=== PATIENT | female | born 1950 | race Caucasian/White ===

== ENCOUNTER 2020-08-15 09:11 | Outpatient (CLI) | payer MEDICARE, OTHER ==
--- NOTE | 2020-08-18 10:09 | Ultrasound Report ---
LIMITED ULTRASOUND OF LEFT BREAST: 08/15/2020 CLINICAL: Patient returns for short term follow-up of a probably benign mass in the left breast. Comparison is made to exams dated: 08/15/2020 mammogram - [facility], 01/09/2020 mamm ogram, 01/09/2020 ultrasound, and 01/03/2020 mammogram - [facility]. Color flow and real-time ultrasound of the left breast 6 o'clock region were performed. Riojas scale images of the real-time examination were reviewed. There is a 0.6 cm x 0.2 cm x 0.4 cm wider than tall oval mass in the left breast at 6 o'clock anterio r depth 2 cm from the nipple. This oval mass is heterogeneously hypoechoic with no posterior acousti c shadowing or enhancement. This abnormality is not significantly changed and correlates with mammog naomy findings. Color flow imaging demonstrates that there is no vascularity present. IMPRESSION: PROBABLY BENIGN The 0.6 cm x 0.2 cm x 0.4 cm wider than tall oval mass in the left breast is consistent with clustere d cysts and is probably benign. A follow-up bilateral mammogram and a left ultrasound in 6 months is recommended to demonstrate stabi lity. Findings and recommendations were conveyed to the patient during today's evaluation. This exam was interpreted at Station ID: [id number]. Electronically Signed By: Rahul Parish M.D. aty/:08/15/2020 10:56:50 Ultrasound BI-RADS: 3 Probably benign BI-RADS CATEGORY: (3) - 3 Mammo and US [id number] 6 month follow-up LATERALITY: (B)
--- NOTE | 2020-08-18 10:09 | Mammography Report ---
UNILATERAL LEFT DIGITAL DIAGNOSTIC MAMMOGRAM 3D/2D: 08/15/2020 CLINICAL: 6 month follow-up of cysts. Comparison is made to exams dated: 01/09/2020 mammogram and 01/03/2020 mammogram - [facility]. The tissue of left breast is predominantly fatty. Redemonstration of previously described 0.5 cm oval mass in the left breast at 6 o'clock anterior dep th. This is not significantly changed. No other significant masses or calcifications are seen in the breast. IMPRESSION: INCOMPLETE: NEEDS ADDITIONAL IMAGING EVALUATION The 0.5 cm oval mass in the left breast is indeterminate. An ultrasound is recommended for further evaluation and is scheduled to immediately follow this exami nation. This exam was interpreted at Station ID: [id number]. NOTE: For mammograms, a report in lay terms will be sent to the patient. Approximately 15% of breast malignancies will not be visualized mammographically. In the management of a palpable breast mass, a negative mammogram must not discourage biopsy of a clinically suspicious lesion. Electronically Signed By: Rahul Parish M.D. aty/:08/15/2020 09:56:44 ACR BI-RADS Category 0: Incomplete 3340F PARENCHYMAL PATTERN: (F) - The breast(s) demonstrate(s) diffuse fatty replacement. BI-RADS CATEGORY: (0) - 0 Ultrasound [id number] Immediate follow-up LATERALITY: (L)
== END 2020-08-15 09:12 | disposition home or self-care (01) ==
LOC: DI 09:11
PROVIDERS: ATTEND Obstetrics & Gynecology
DX: R92.8 Other abnormal and inconclusive findings on diagnostic imaging of breast (principal); N63.25 Unspecified lump in the left breast, overlapping quadrants

== ENCOUNTER 2021-03-24 09:28 | Outpatient (CLI) | payer MEDICARE, OTHER ==
--- NOTE | 2021-03-25 09:54 | Ultrasound Report ---
LIMITED ULTRASOUND OF RIGHT BREAST: 03/24/2021 CLINICAL: Right breast mass. Comparison is made to exams dated: 03/24/2021 mammogram - [facility], 01/09/2020 [facility], 01/09/2020 ultrasound, and 01/03/2020 mammogram - [facility]. Color flow ultrasound of the right breast 10 o'clock region was performed on the areas of interest. Riojas scale images of the real-time examination were reviewed. There is a 0.8 cm x 0.5 cm x 0.7 cm oval mass with an indistinct margin in the right breast at 10 o'c lock anterior depth 1 cm from the nipple. This oval mass is hyperechoic with posterior acoustic shad owing. This correlates with mammography findings. Color flow imaging demonstrates that there is no vascularity present. IMPRESSION: PROBABLY BENIGN The 0.8 cm x 0.5 cm x 0.7 cm oval mass in the right breast is suggestive of focal breast tissue and i s probably benign. Follow-up mammogram and ultrasound in 6 months are recommended. A follow-up mammogram and an ultrasound in 6 months are recommended to demonstrate stability. This exam was interpreted at Station ID: [id number]. Electronically Signed By: José Miguel Rivera M.D. ddp/:03/24/2021 14:45:43 Ultrasound BI-RADS: 3 Probably benign BI-RADS CATEGORY: (3) - 3 Mammo and US [id number] 6 month follow-up LATERALITY: (B)
--- NOTE | 2021-03-25 09:54 | Mammography Report ---
BILATERAL DIGITAL DIAGNOSTIC MAMMOGRAM 3D/2D: 03/24/2021 CLINICAL: Patient returns for a 6 month follow up of the left breast, due for bilateral exam. Comparison is made to exams dated: 08/15/2020 ultrasound, 08/15/2020 mammogram - [facility], 01/09/2020 mammogram, 01/09/2020 ultrasound, and 01/03/2020 mammogram - [facility]. There are scattered fibroglandular elements in both breasts. There is an oval equal density focal asymmetry with an indistinct margin in the right breast at 10 o' clock anterior depth. There is an oval equal density focal asymmetry with an indistinct margin in the left breast at 6 o'cl ock anterior depth. This is not significantly changed. No other significant masses or calcifications are seen in either breast. IMPRESSION: INCOMPLETE: NEEDS ADDITIONAL IMAGING EVALUATION The oval equal density focal asymmetry in the right breast at 10 o'clock anterior depth is indetermin ate. An ultrasound is recommended. The oval equal density focal asymmetry in the left breast at 6 o'clock anterior depth is indeterminat e. An ultrasound is recommended. This exam was interpreted at Station ID: [id number]. NOTE: For mammograms, a report in lay terms will be sent to the patient. Approximately 15% of breast malignancies will not be visualized mammographically. In the management of a palpable breast mass, a negative mammogram must not discourage biopsy of a clinically suspicious lesion. Electronically Signed By: José Miguel Rivera M.D. ddp/:03/24/2021 11:11:01 ACR BI-RADS Category 0: Incomplete 3340F PARENCHYMAL PATTERN: (A) - The breast(s) demonstrate(s) scattered fibroglandular densities. BI-RADS CATEGORY: (0) - 0 Ultrasound [id number] Immediate follow-up LATERALITY: (B)
--- NOTE | 2021-03-25 09:54 | Ultrasound Report ---
LIMITED ULTRASOUND OF LEFT BREAST: 03/24/2021 CLINICAL: Patient returns today to evaluate a focal asymmetry in the left breast. Comparison is made to exams dated: 08/15/2020 ultrasound, 08/15/2020 mammogram - [facility], 01/09/2020 mammogram, 01/09/2020 ultrasound, and 01/03/2020 mammogram - [facility]. Color flow ultrasound of the left breast 6 o'clock region was performed on the areas of interest. G ray scale images of the real-time examination were reviewed. There is a 0.6 cm x 0.3 cm x 0.4 cm cluster of oval cysts with a septated internal wall in the left b reast at 6 o'clock anterior depth 1 cm from the nipple. This cluster of oval cysts is hypoechoic. T his correlates with mammography findings. Color flow imaging demonstrates that there is no vasculari ty present. Findings are not significantly changed from the prior studies. IMPRESSION: PROBABLY BENIGN The 0.6 cm x 0.3 cm x 0.4 cm cluster of oval cysts in the left breast is probably benign. A follow-up mammogram and an ultrasound in 12 months are recommended to demonstrate 2 year stability. This exam was interpreted at Station ID: [id number]. Electronically Signed By: José Miguel Rivera M.D. ddclarisa/:03/24/2021 14:43:42 Ultrasound BI-RADS: 3 Probably benign BI-RADS CATEGORY: (3) - 3 Mammo and US [id number] 12 month follow-up LATERALITY: (B)
== END 2021-03-24 09:29 | disposition home or self-care (01) ==
LOC: DI 09:28
PROVIDERS: ATTEND Internal Medicine
DX: N60.12 Diffuse cystic mastopathy of left breast (principal); N63.11 Unspecified lump in the right breast, upper outer quadrant; R92.8 Other abnormal and inconclusive findings on diagnostic imaging of breast; F41.9 Anxiety disorder, unspecified; I10 Essential (primary) hypertension; E03.9 Hypothyroidism, unspecified; K22.2 Esophageal obstruction; Z22.2 Carrier of diphtheria; Z11.59 Encounter for screening for other viral diseases; Z13.1 Encounter for screening for diabetes mellitus
CPT/HCPCS: 36415; 80048; 80061; 83036; 83721; 86803

== ENCOUNTER 2021-03-24 09:38 | Outpatient (CLI) | payer MEDICARE, OTHER ==
[2021-03-24 10:20] LABS: BUN - BLOOD UREA NITROGEN 10 mg/dL (6-20); CALCIUM 9.5 mg/dL (8.5-10.3); CARBON DIOXIDE - CO2 30 mmol/L (21-32); CHLORIDE 100 mmol/L (101-111); CHOL/HDL RATIO 3.1 (<4.4); CHOLESTEROL 253 mg/dL; CREATININE 0.7 mg/dL (0.4-1.0); GFR - MDRD 83 (>89); GLUCOSE 115 mg/dL (70-100); HDL CHOLESTEROL 81 mg/dL; LDL CHOLESTEROL,CALCULATED 160 mg/dL; POTASSIUM 3.9 mmol/L (3.5-5.0); SODIUM 142 mmol/L (135-145); TRIGLYCERIDES 62 mg/dL; VLDL CHOLESTEROL 12 mg/dL
[2021-03-24 12:08] LABS: ESTIMATED AVERAGE GLUCOSE 111 mg/dL (70-100); HEMOGLOBIN A1c% 5.5 % (4.27-6.07)
[2021-03-26 09:22] LABS: HEPATITIS C ANTIBODY NON-REACTIVE (NON-REACTIVE)
== END 2021-03-24 09:39 | disposition home or self-care (01) ==
LOC: LAB 09:38
PROVIDERS: ATTEND Internal Medicine
DX: R92.8 Other abnormal and inconclusive findings on diagnostic imaging of breast (principal); F41.9 Anxiety disorder, unspecified; I10 Essential (primary) hypertension; E03.9 Hypothyroidism, unspecified; K22.2 Esophageal obstruction; Z11.59 Encounter for screening for other viral diseases; Z13.220 Encounter for screening for lipoid disorders; Z13.1 Encounter for screening for diabetes mellitus
CPT/HCPCS: 36415; 80048; 80061; 83036; 83721; 86803

== ENCOUNTER 2021-04-14 14:04 | Outpatient (CLI) | payer MEDICARE ==
[2021-04-14 14:53] LABS: THYROID STIMULATING HORMONE 2.56 uIU/mL (0.34-5.60)
--- NOTE | 2021-04-14 15:04 | DEXA Report ---
PROCEDURE: Dexa Spine and/or Hip INDICATIONS: NORMAL MENOPAUSE TECHNIQUE: Dual energy x-ray absorptiometry (DXA) was performed on a Simpleshow System. Regions measur ed are the AP Spine, femoral neck, and if needed forearm. COMPARISON: None. FINDINGS: Lumbar Spine: Bone Mineral Density 1.076 g/cm/cm,T score -0.9, normal bone density Left Hip: Bone Mineral Density 0.863 g/cm/cm,T score -1.1, osteopenia Left Femoral Neck: Bone Mineral Density 0.767 g/cm/cm, T score -2.0, osteopenia (T score greater or equal to -1.0: NORMAL) (T score from -1.1 to -2.4: OSTEOPENIA) (T score less than or equal to -2.5 to: OSTEOPOROSIS) Impression: OSTEOPENIA. Patient is at increased risk for fracture. Patients with diagnosis of osteoporosis or osteopenia should have regular bone mineral density assess ment. For those eligible for Medicare, routine testing is allowed once every 2 years. Testing frequ ency can be increased for patients who have rapidly progressing disease or for those who are receivin g medical therapy to restore bone mass. Reviewed by: Rahul Parish MD on 04/14/2021 3:03 PM PST Approved by: Rahul Parish MD on 04/14/2021 3:03 PM PST Station ID: [id number]
== END 2021-04-14 14:05 | disposition home or self-care (01) ==
LOC: DI 14:04
PROVIDERS: ATTEND Internal Medicine
DX: Z78.0 Asymptomatic menopausal state (principal); M85.89 Other specified disorders of bone density and structure, multiple sites; E03.9 Hypothyroidism, unspecified
CPT/HCPCS: 36415; 84443

== ENCOUNTER 2021-06-16 11:51 | Outpatient (CLI) | payer MEDICARE ==
[2021-06-16 12:20] LABS: CALCIUM 9.4 mg/dL (8.5-10.3); CREATININE 0.9 mg/dL (0.4-1.0); POTASSIUM 3.1 mmol/L (3.5-5.0)
== END 2021-06-16 11:52 | disposition home or self-care (01) ==
LOC: LAB 11:51
PROVIDERS: ATTEND Internal Medicine
DX: I10 Essential (primary) hypertension (principal)
CPT/HCPCS: 36415; 80048

== ENCOUNTER 2022-03-22 11:52 | Emergency (ER) | payer MEDICARE ==
--- NOTE | 2022-03-22 18:47 | ED Physician Documentation ---
History of Present Illness - Stated complaint Stated Complaint: HEAD/EYE FLUTTERS - Chief complaint Chief Complaint: Neuro - Additonal information Additional information: 71-year-old female presents emergency department for evaluation of intermittent headache since . Headache is mostly right-sided. She woke up 2 nights ago and said it was the worst headache she has had. However yesterday she began having some kaleidoscope vision in the left eye. She states that for about 20 minutes she had a kaleidoscope caterpillar vision between 2 and 5:00 that she could not see through. Since then the symptoms is fully resolved including the headache. She did speak to her primary care doctor who told to come to the ER. On presentation at this time she is alert and well-appearing. No focal deficits. Normal gait. Past medical history most significant for hypertension. No diabetes. Non- smoker. She did quit drinking a few months ago. Review of Systems Constitutional: denies: Fever, Chills Eyes: reports: Decreased vision, Other (Kaleidoscope vision) Ears: reports: Reviewed and negative Nose: reports: Reviewed and negative Throat: reports: Reviewed and negative Cardiac: reports: Reviewed and negative Respiratory: reports: Reviewed and negative GI: reports: Reviewed and negative : reports: Reviewed and negative Skin: reports: Reviewed and negative Musculoskeletal: reports: Reviewed and negative Neurologic: reports: Headache. denies: Generalized weakness, Focal weakness, Numbness, Difficulty speaking, Seizure, Confused, Head injury, LOC Psychiatric: reports: Reviewed and negative Endocrine: reports: Reviewed and negative PD PAST MEDICAL HISTORY - Present Medications Home Medications: Ambulatory Orders Medication Instructions Recorded Confirmed Calcium Carbonate/Vitamin D3 1 each PO DAILY 03/22/22 03/22/22 [Calcium 500 mg-Vit D3 600 Unit] Chlorthalidone 25 mg PO DAILY 03/22/22 03/22/22 Levothyroxine Sodium 50 mcg PO DAILY 03/22/22 03/22/22 [Levothyroxine] Metoprolol Succinate [Toprol Xl] 50 mg PO DAILY 03/22/22 03/22/22 Multivitamin 1 each PO DAILY 03/22/22 03/22/22 - Allergies Allergies/Adverse Reactions: Allergies Allergy/AdvReac Type Severity Reaction Status Date / Time No Known Drug Allergies Allergy Verified 03/22/22 12:10 PD ED PE NORMAL - General General: Alert and oriented X 3, No acute distress, Well developed/nourished - HEENT HEENT: Atraumatic, Moist mucous membranes - Neck Neck: Supple, no meningeal sign, No adenopathy - Cardiac Cardiac: RRR, No gallop - Respiratory Respiratory: No respiratory distress, Clear bilaterally - Abdomen Abdomen: Normal bowel sounds, Soft, Non tender, Non distended - Derm Derm: Warm and dry - Extremities Extremities: No deformity, No tenderness to palpate - Neuro Neuro: Alert and oriented X 3, 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, No motor deficit, No sensory deficit, Normal speech Eye Opening: Spontaneous Motor: Obeys Commands Verbal: Oriented GCS Score: 15 - Psych Psych: Normal mood Results - Vitals Vitals: Vital Signs - 24 hr 03/22/22 03/22/22 12:06 19:20 Temperature 36.4 C L Heart Rate 84 66 Respiratory 16 10 L Rate Blood Pressure 149/84 H 145/73 H O2 Saturation 100 99 Oxygen O2 Source Room air - Labs Labs: Laboratory Tests 03/22/22 03/22/22 18:50 18:50 WBC 7.5 RBC 4.07 L Hgb 12.8 Hct 39.3 MCV 96.6 MCH 31.4 H MCHC 32.6 RDW 12.3 Plt Count 340 MPV 8.7 Neut # (Auto) 4.3 Lymph # (Auto) 2.1 [place] # (Auto) 0.7 Eos # (Auto) 0.2 Baso # (Auto) 0.0 Absolute Nucleated RBC 0.00 Nucleated RBC % 0.0 Sodium 137 Potassium 2.8 L Chloride 97 L Carbon Dioxide 30 Anion Gap 10.0 BUN 12 Creatinine 0.8 Estimated GFR (MDRD) 71 L Glucose 99 Calcium 9.7 Total Bilirubin 1.2 H AST 25 ALT 19 Alkaline Phosphatase 74 Total Protein 8.7 H Albumin 4.7 Globulin 4.0 Albumin/Globulin Ratio 1.2 Lipase 42 - Rads (name of study) angio head/neck Radiology: Final report received (No high-grade stenosis or occlusion of the head and neck arteries. No acute intracranial abnormality. No high-grade stenosis or occlusion of the central intracranial arteries) PD MEDICAL DECISION MAKING - ED course Complexity details: reviewed results, re-evaluated patient, considered differential, d/w patient ED course: 71-year-old female presents emergency department for evaluation of a headache that has been intermittent for the last 3 to 4 days as well as the development of left eye kaleidoscope vision yesterday that lasted about 10 minutes and fully resolved. She does have a history of hypertension and is a former drinker quitting only a few weeks ago. On exam she has no focal neurodeficits. She has normal cerebellar exam. Her vision is normal in both eyes. The differentials include migraine with aura, retinal vascular occlusion, CVA and TIA. We did obtain labs today with the most significant finding being that of hypokalemia. She was given 40 of potassium here in the emergency department for potassium of 2.8. We also completed an EKG that showed normal sinus rhythm without fibrillation. CT angio of the head and neck showed no stenosis occlusion or vascular malformation. At this time the patient has had a prolonged stay in the emergency department and on reevaluation she continues to be free of any neurodeficits. We discussed the etiology and the unclear cause of her symptoms and I am making the recommend ation that she follow closely with an marketing automation specialist this week to have an exam of her retina completed. She may also benefit from an outpatient MRI. We discussed that a migraine with aura could cause the symptoms and follow-up with her primary care provider is warranted. She may also benefit from referral to neurology. Emergent return precautions were discussed for worsening symptoms Departure - Departure Disposition: 01 Home, Self Care Clinical Impression: Hypokalemia Headache Qualifiers: Headache type: unspecified Headache chronicity pattern: acute headache Intractability: not intractable Qualified Code(s): R51.9 - Headache, unspecified Condition: Stable Record reviewed to determine appropriate education?: Yes Comments: Marie you are seen today in the emergency department because For the last few days you have had a mild headache but yesterday you developed kaleidoscope vision in your left eye and had blurriness of the vision between 2 and 5:00. The symptoms lasted a few minutes and then they resolved. Here in the emergency department your neurological and cerebellar exam are completely unremarkable. Your vision is normal in both eyes. Your labs do not show any worrisome findings though we do note a mildly low potassium of 2.8. I would like you to follow this up with your primary care doctor to have it repeated in about 1 week. We did give you 40 of potassium here in the emergency department. We also did CT angiograms of your head and neck. We have no findings to suggest stenosis, occlusion, aneurysm or bleeding within the brain or the vessels of the neck. It is not clear what the cause of your symptoms were. There are some migraines with aura that can cause similar symptoms. With your age and the history of high blood pressure you should be referred for an outpatient MRI. You should also discuss with your doctor whether referral to a neurologist is appropriate. I would like you to see your marketing automation specialist this week to have a new vision screening completed as well as a thorough eye exam. If at any point you develop slurred speech, have loss of vision, have sudden weakness in your arms legs or droopy face then you should return immediately to the ER for a second evaluation
[2022-03-22 19:07] LABS: BASOPHILS % (AUTO) 0.4 %; EOSINOPHILS # (AUTO) 0.2 10^3/uL (0.0-0.7); EOSINOPHILS % (AUTO) 2.5 %; HCT - HEMATOCRIT 39.3 % (37.0-47.0); HGB - HEMOGLOBIN 12.8 g/dL (12.0-16.0); LYMPHOCYTES # (AUTO) 2.1 10^3/uL (1.5-3.5); LYMPHOCYTES % (AUTO) 27.5 %; MEAN CORPUSCULAR HEMOGLOBIN 31.4 pg (27.0-31.0); MEAN CORPUSCULAR HGB CONC 32.6 g/dL (32.0-36.0); MEAN CORPUSCULAR VOLUME 96.6 fL (81.0-99.0); MEAN PLATELET VOLUME 8.7 fL (7.9-10.8); MONOCYTES # (AUTO) 0.7 10^3/uL (0.0-1.0); MONOCYTES % (AUTO) 9.3 %; NEUTROPHILS # (AUTO) 4.3 10^3/uL (1.5-6.6); NEUTROPHILS % (AUTO) 56.8 %; PLT - PLATELET COUNT 340 10^3/uL (130-450); RED BLOOD COUNT 4.07 10^6/uL (4.20-5.40); RED CELL DISTRIBUTION WIDTH 12.3 % (12.0-15.0); WHITE BLOOD COUNT 7.5 x10^3/uL (4.8-10.8)
[2022-03-22 19:18] LABS: ALBUMIN 4.7 g/dL (3.2-5.5); ALBUMIN/GLOBULIN RATIO 1.2 (1.0-2.2); BILIRUBIN,TOTAL 1.2 mg/dL (0.2-1.0); CALCIUM 9.7 mg/dL (8.5-10.3); CREATININE 0.8 mg/dL (0.4-1.0); POTASSIUM 2.8 mmol/L (3.5-5.0); TOTAL PROTEIN 8.7 g/dL (6.7-8.2)
--- NOTE | 2022-03-22 21:16 | CT Report ---
PROCEDURE: ANGIO HEAD W/WO INDICATIONS: loss of vision left eye; now resotred CONTRAST: Omni 300 80ml TECHNIQUE: Precontrast 4.5 mm thick angled axial sections acquired from the foramen magnum to the vertex. Afte r the administration of intravenous contrast, 1 mm thick sections acquired through the [place] of [place] is. Postcontrast 4.5 mm thick sections then re-acquired from the foramen magnum to the vertex. 3-di mensional qvnwjye-yoejzvaxb-vrqsnyyuiv (MIP) and/or volume rendering reformats were acquired of the c entral intracranial vasculature. For radiation dose reduction, the following was used: automated ex posure control, adjustment of mA and/or kV according to patient size. COMPARISON: None. FINDINGS: Image quality: Excellent. Anterior circulation: Intracranial internal carotid arteries are patent bilaterally. There is multi focal calcification along the cavernous segments of the internal carotid arteries bilaterally with as sociated mild multifocal narrowing. The paired anterior cerebral arteries are patent bilaterally. Th e middle cerebral arteries are also patent bilaterally. The anterior communicating artery is patent. No high-grade stenosis, occlusion, or discrete filling defects. No cerebral aneurysm identified. Posterior circulation: Visualized portions of the vertebral arteries appear patent and join to form a patent basilar artery. The posterior cerebral arteries are patent bilaterally. No high-grade steno sis, occlusion, or discrete filling defects. No cerebral aneurysm identified. CSF spaces: Basal cisterns are patent. No extra-axial fluid collections. Ventricles are normal in size and shape. Brain: No intracranial hemorrhage, mass, or mass effect. Riojas-white matter interface appears preser mahesh. No abnormal intracranial enhancement. Skull and face: Calvarium and facial bones appear intact, without suspicious lesions. Sinuses: Visualized sinuses and mastoids are clear. IMPRESSION: 1. No acute intracranial abnormality. 2. No high-grade stenosis or occlusion of the central intracranial arteries. Reviewed by: José Miguel Blunt MD on 03/22/2022 9:15 PM PST Approved by: José Miguel Blunt MD on 03/22/2022 9:15 PM PST Station ID: [id number]
--- NOTE | 2022-03-22 21:20 | CT Report ---
PROCEDURE: ANGIO NECK W INDICATIONS: loss of vision last night left eye; now resolved CONTRAST: Omni 300 80ml TECHNIQUE: After the administration of intravenous contrast, 1.5 mm axial sections acquired from the aortic arch to the [place] of [place]. Coronal 3-D maximum intensity projection (MIP) and/or volume rendering ref ormats were then performed. For radiation dose reduction, the following was used: automated exposur e control, adjustment of mA and/or kV according to patient size. COMPARISON: None. FINDINGS: Image quality: Excellent. Carotid system: The great vessels demonstrate a conventional anatomy as they arise from the aortic a rch. The origins of the common carotid arteries appear patent. The common carotid arteries demonstr ate normal calibers and courses. There is mild calcified plaque in the carotid bulbs with minimal angle rowing of less than 25%. The internal carotid arteries demonstrate normal caliber and course. The cav ernous segments of the internal carotid arteries demonstrate minimal calcified plaque without focal h igh-grade narrowing. Posterior circulation: The origins of the vertebral arteries appear patent. The more superior porti ons of the vertebral arteries demonstrate normal course and caliber. They join to form a normal appe aring basilar artery. Soft tissues: Visualized neck soft tissues demonstrate no suspicious abnormalities. The thyroid is normal in size and there are no incidental findings. Bones: No suspicious bony lesions. Visualized cervical spine demonstrates mild degenerative disc di sease and facet joint arthropathy. IMPRESSION: 1. No high-grade stenosis or occlusion of the head and neck arteries. The estimate of stenosis included in the report of the imaging study was calculated using the NASCET method Reviewed by: José Miguel Blunt MD on 03/22/2022 9:19 PM PST Approved by: José Miguel Blunt MD on 03/22/2022 9:19 PM PST Station ID: [id number]
[2022-03-22] MEDS ORDERED: POTASSIUM CHLORIDE 20 MEQ TABLET PO STA (21:45)
[2022-03-22 22:14] VITALS: BP 148/100
[2022-03-23] MEDS ORDERED: iohexoL-300 100 ML VIAL IVP ONE (05:57)
== END 2022-03-22 22:13 | disposition home or self-care (01) ==
LOC: ED 11:52
DX: R51.9 Headache, unspecified (principal); E87.6 Hypokalemia; H53.8 Other visual disturbances; I10 Essential (primary) hypertension
CPT/HCPCS: 36415; 70496; 70498; 80053; 83690; 85025; 99284; A9270

== ENCOUNTER 2022-04-26 11:08 | Outpatient (CLI) | payer MEDICARE ==
[2022-04-26 11:53] LABS: THYROID STIMULATING HORMONE 2.5 uIU/mL (0.34-5.60)
== END 2022-04-26 11:09 | disposition home or self-care (01) ==
LOC: LAB 11:08
PROVIDERS: ATTEND Internal Medicine
DX: E03.9 Hypothyroidism, unspecified (principal); E87.6 Hypokalemia
CPT/HCPCS: 36415; 84132; 84443

== ENCOUNTER 2022-05-06 12:42 | Outpatient (CLI) | payer MEDICARE ==
[~2022-05-06 12:42] MED LIST: GADOBUTROL 7.5 MMOL/7.5 ML VIAL ONE
[2022-05-06 13:17] LABS: CREATININE 0.7 mg/dL (0.4-1.0)
[2022-05-06] MEDS: GADOBUTROL 7.5 MMOL/7.5 ML VIAL IVP ONE (14:52)
--- NOTE | 2022-05-06 16:26 | MRI Report ---
PROCEDURE: MRI brain with and without contrast INDICATIONS: VISUAL CHANGES CONTRAST: GADAVIST 6.8 ML TECHNIQUE: Noncontrast axial T1 spin echo, axial T2 fast spin echo, sagittal and axial FLAIR, coronal T2 fast sp in echo, axial gradient echo, axial diffusion and ADC through the brain. After the administration of contrast, axial and coronal T1 spin echo with fat saturation through the brain. COMPARISON: None. FINDINGS: Image quality: Excellent. CSF spaces: Basal cisterns are patent. No extra-axial fluid collections. Ventricles are normal in size and shape. Brain: No midline shift. No intracranial bleeds or masses. No abnormal intracranial enhancement. There is cerebral volume loss for age. There is periventricular white matter chronic small vessel is chemic change. The brainstem appears normal. Diffusion-weighted images demonstrate no acute ischemi c insults. No chronic ischemic insults. Normal intravascular flow voids are present. Skull and face: Calvarial marrow is normal in signal. Orbits appear normal. Sinuses: Sinuses and mastoids appear clear. IMPRESSION: 1. Normal MRI of the brain with and without contrast Reviewed by: Chente Martinez MD on 05/06/2022 3:25 PM [place] Approved by: Chente Martinez MD on 05/06/2022 3:25 PM [facility] Station ID: [id number]
== END 2022-05-06 12:43 | disposition home or self-care (01) ==
LOC: LAB 12:42
PROVIDERS: ATTEND Psychiatry & Neurology Neurology
DX: H53.9 Unspecified visual disturbance (principal); R51.9 Headache, unspecified; Z13.89 Encounter for screening for other disorder
CPT/HCPCS: 36415; 70553; 82565; A9585

== ENCOUNTER 2023-04-10 11:44 | Outpatient (CLI) | payer MEDICARE ==
[2023-04-10 12:12] LABS: CALCIUM 10.1 mg/dL (8.5-10.3); CREATININE 0.7 mg/dL (0.6-1.3); POTASSIUM 3.3 mmol/L (3.5-4.5)
[2023-04-10 12:29] LABS: THYROID STIMULATING HORMONE 2.12 uIU/mL (0.34-5.60)
== END 2023-04-10 11:45 | disposition home or self-care (01) ==
LOC: LAB 11:44
PROVIDERS: ATTEND Internal Medicine
DX: E87.6 Hypokalemia (principal); E03.9 Hypothyroidism, unspecified
CPT/HCPCS: 36415; 80048; 84443

== ENCOUNTER 2023-05-12 11:33 | Outpatient (CLI) | payer MEDICARE ==
[2023-05-12 11:57] LABS: CREATININE 0.8 mg/dL (0.6-1.3); POTASSIUM 3.2 mmol/L (3.5-4.5)
== END 2023-05-12 11:34 | disposition home or self-care (01) ==
LOC: LAB 11:33
PROVIDERS: ATTEND Internal Medicine
DX: E87.6 Hypokalemia (principal)
CPT/HCPCS: 36415; 80048

== ENCOUNTER 2023-06-27 11:23 | Outpatient (CLI) | payer MEDICARE | END 2023-06-27 11:24 | disposition home or self-care (01) | LOC: LAB 11:23 | PROVIDERS: ATTEND Internal Medicine | DX: E87.6 Hypokalemia (principal) | CPT/HCPCS: 36415; 84132 ==

== ENCOUNTER 2023-10-14 10:08 | Outpatient (CLI) | payer MEDICARE ==
--- NOTE | 2023-10-17 09:33 | Mammography Report ---
BILATERAL DIGITAL SCREENING MAMMOGRAM 3D/2D: 10/14/2023 CLINICAL: Routine screening. Comparison is made to exams dated: 10/06/2021 mammogram - [facility], 03/24/2021 ma mmogram, 08/15/2020 mammogram - [facility], 01/09/2020 mammogram, and 01/03/2020 mammog [facility] - [facility]. Both breasts are almost entirely fatty (category a/<25% glandular tissue). No significant masses, calcifications, or other findings are seen in either breast. There has been no significant interval change. IMPRESSION: NEGATIVE There is no mammographic evidence of malignancy. A 1 year screening mammogram is recommended. Based on the Tyrer Cuzick model (a risk assessment model) the patient's lifetime risk is 3.1% and her 10 year risk is 2.2%. According to the ACR, ACS, and NCCN guidelines, an annual breast MRI exam baldev g with mammogram is recommended if the patient's lifetime risk is 20% or greater. This exam was interpreted at Station ID: [id number]. NOTE: For mammograms, a report in lay terms will be sent to the patient. Approximately 15% of breast malignancies will not be visualized mammographically. In the management of a palpable breast mass, a negative mammogram must not discourage biopsy of a clinically suspicious lesion. Electronically Signed By: Max Talbot M.D. [facility]:10/14/2023 13:03:15 letter sent: No_Letter ACR BI-RADS Category 1: Negative 3341F PARENCHYMAL PATTERN: (F) - The breast(s) demonstrate(s) diffuse fatty replacement. BI-RADS CATEGORY: (1) - 1 RECOMMENDATION: (ANNUAL) - Recommend routine annual screening mammography. [id number] 1 year screening LATERALITY: (B)
== END 2023-10-14 10:09 | disposition home or self-care (01) ==
LOC: DI 10:08
PROVIDERS: ATTEND Internal Medicine
DX: Z12.31 Encounter for screening mammogram for malignant neoplasm of breast (principal)